=== PATIENT | female | born 2000 | race Caucasian/White ===

== ENCOUNTER 2022-07-26 22:59 | Emergency (ER) | payer SELFPAY | END 2022-07-27 02:30 | disposition left against medical advice (07) | LOC: CSHERS 22:59 | DX: Z53.21 Procedure and treatment not carried out due to patient leaving prior to being seen by health care provider (principal) ==

== ENCOUNTER 2022-07-27 19:05 | Emergency (ER) | payer SELFPAY ==
[2022-07-27] MEDS ORDERED: HYDROcodone/Acetaminophen 5/325 mg Tablet ONE (22:01)
== END 2022-07-27 22:05 | disposition home or self-care (01) ==
LOC: CSHERS 19:05
DX: S01.512A Laceration without foreign body of oral cavity, initial encounter (principal); Z87.891 Personal history of nicotine dependence; X58.XXXA Exposure to other specified factors, initial encounter
CPT/HCPCS: 99282